=== PATIENT | male | born 1970 | race Caucasian/White ===

== ENCOUNTER 2017-10-15 16:57 | Emergency (ER) | payer BC ==
[2017-10-15 17:13] VITALS: RESP 18; TEMP 98.4
[2017-10-15 17:18] LABS: LACTIC ACID 1.8 mMol/L (0.0-2.0)
[2017-10-15 17:22] LABS: ALBUMIN 4.6 gm/dl (3.4-5.0); BILIRUBIN,TOTAL 0.8 mg/dl (0.2-1.0); CALCIUM 9.1 mg/dl (8.5-10.1); CARBON DIOXIDE 27.7 mEq/L (21-32); CREATININE 1.06 mg/dl (0.80-1.30); INR 0.93 (0.86-1.12); POTASSIUM 3.9 mMol/L (3.5-5.1); TOTAL PROTEIN 8.2 gm/dl (6.4-8.2)
[2017-10-15 17:27] LABS: BASOPHILS % (AUTO) 1 % (0-3); EOSINOPHILS % (AUTO) 0 % (0-9); HEMATOCRIT 45 % (39-53); HEMOGLOBIN 15.3 gm/dl (13.5-17.7); MEAN CORPUSCULAR HEMOGLOBIN 29.5 pg (27.0-32.0); MEAN CORPUSCULAR HGB CONC 34.3 gm/dl (32.0-36.0); MEAN CORPUSCULAR VOLUME 86 fL (80-100); MONOCYTES % (AUTO) 5.3 % (0-12)
[2017-10-15] MEDS ORDERED: MORPHINE SULFATE 10 MG/ML SOL IV ONE (18:21)
[2017-10-15] MEDS ORDERED: MORPHINE SULFATE 10 MG/ML SOL ONE (18:24)
[2017-10-15 18:27] VITALS: BP 137/87; PULSE 82; O2SAT 98
[2017-10-15] MEDS ORDERED: SODIUM CHLORIDE 0.9% FLUSH 10 ML SOL IV PRN (18:27)
== END 2017-10-15 18:48 | disposition home or self-care (01) ==
LOC: ED 16:57
DX: K35.2 Acute appendicitis with generalized peritonitis (principal)
CPT/HCPCS: 74177; 80053; 85025; 85610; 96374; 99284; J2270; Q9967